=== PATIENT | female | born 1990 | race American Indian/Alaskan Native ===

== ENCOUNTER 2016-07-07 08:33 | Emergency (ER) | payer SELFPAY ==
[2016-07-07 08:51] VITALS: BP 113/79
[2016-07-07 10:16] LABS: Basophils % (Auto) 0.3 % (0.0-1.8); Eosinophils % (Auto) 0.4 % (0.0-4.3); Hemoglobin 13.8 gm/dl (10.1-14.3); Mean Corpuscular HGB Conc 35 % (30-34); Mean Corpuscular Hemoglobin 32 pg (28-32); Mean Corpuscular Volume 92 fl (79-97); Platelet Count 269 K/mm3 (140-440); Red Blood Count 4.37 M/mm3 (3.65-5.03); Red Cell Distribution Width 13.4 % (13.2-15.2); White Blood Count 9.5 K/mm3 (4.5-11.0)
[2016-07-07 10:36] LABS: Alanine Aminotransferase 8 units/L (7-56); Albumin 4.4 g/dL (3.9-5); Albumin/Globulin Ratio 1.2 %; Alkaline Phosphatase 72 units/L (35-129); Anion Gap 15 mmol/L; BUN/Creatinine Ratio 17.14; Bilirubin,Total 0.5 mg/dL (0.1-1.2); Blood Urea Nitrogen 12 mg/dL (7-17); Calcium 9.5 mg/dL (8.4-10.2); Carbon Dioxide 29 mmol/L (22-30); Chloride 98.4 mmol/L (98-107); Glucose 105 mg/dL (65-100); Lipase 26 units/L (13-60); Potassium 4.2 mmol/L (3.6-5.0); Sodium 138 mmol/L (137-145); Total Protein 8.2 g/dL (6.3-8.2)
[2016-07-07 11:34] LABS: Mucus,Urine 3+ /HPF
[2016-07-07 11:41] LABS: Bacteria,Urine 2+ /HPF (Negative); Bilirubin,Urine NEG (Negative); Blood,Urine SM (Negative); Ketones,Urine NEG (Negative); Leukocyte Esterase,Urine SM (Negative); Nitrite,Urine POS (Negative); Protein,Urine <15 mg/dL mg/dL (Negative)
--- NOTE | 2016-07-08 14:54 | ED Elopement Review ---
ED Pt Elopement review - Results review Lab results: Laboratory Tests 07/07/16 07/07/16 07/07/16 10:00 10:00 10:00 WBC 9.5 RBC 4.37 Hgb 13.8 Hct 40.0 MCV 92 MCH 32 MCHC 35 H RDW 13.4 Plt Count 269 Lymph % (Auto) 12.4 L [place] % (Auto) 5.7 Eos % (Auto) 0.4 Baso % (Auto) 0.3 Lymph # 1.2 [place] # 0.5 Eos # 0.0 Baso # 0.0 Seg Neutrophils % 81.2 H Seg Neutrophils # 7.7 Sodium 138 Potassium 4.2 Chloride 98.4 Carbon Dioxide 29 Anion Gap 15 BUN 12 Creatinine 0.7 Estimated GFR > 60 BUN/Creatinine Ratio 17.14 Glucose 105 H Calcium 9.5 Total Bilirubin 0.5 AST 18 ALT 8 Alkaline Phosphatase 72 Total Protein 8.2 Albumin 4.4 Albumin/Globulin Ratio 1.2 Lipase 26 HCG, Qual Negative Urine Color Urine Turbidity Urine pH Ur Specific [place] Urine Protein Urine Glucose (UA) Urine Ketones Urine Blood Urine Nitrite Ur Reducing Substances Urine Bilirubin Urine Ictotest Urine Urobilinogen Ur Leukocyte Esterase Urine WBC (Auto) Urine RBC (Auto) U Epithel Cells (Auto) Urine Bacteria (Auto) Urine Mucus 07/07/16 Unknown WBC RBC Hgb Hct MCV MCH MCHC RDW Plt Count Lymph % (Auto) [place] % (Auto) Eos % (Auto) Baso % (Auto) Lymph # [place] # Eos # Baso # Seg Neutrophils % Seg Neutrophils # Sodium Potassium Chloride Carbon Dioxide Anion Gap BUN Creatinine Estimated GFR BUN/Creatinine Ratio Glucose Calcium Total Bilirubin AST ALT Alkaline Phosphatase Total Protein Albumin Albumin/Globulin Ratio Lipase HCG, Qual Urine Color Yellow Urine Turbidity Slightly-cloudy Urine pH 5.0 Ur Specific [place] 1.027 Urine Protein <15 mg/dl Urine Glucose (UA) Neg Urine Ketones Neg Urine Blood Sm Urine Nitrite Pos Ur Reducing Substances Not Reportable Urine Bilirubin Neg Urine Ictotest Not Reportable Urine Urobilinogen 2.0 Ur Leukocyte Esterase Sm Urine WBC (Auto) 8.0 H Urine RBC (Auto) 5.0 U Epithel Cells (Auto) 12.0 Urine Bacteria (Auto) 2+ Urine Mucus 3+ - Call Back decision Pt Call Back Decision: No action required
== END 2016-07-07 21:32 | disposition left against medical advice (07) ==
LOC: ED 08:33
DX: R10.30 Lower abdominal pain, unspecified (principal); M25.512 Pain in left shoulder; Z53.21 Procedure and treatment not carried out due to patient leaving prior to being seen by health care provider
CPT/HCPCS: 36415; 80053; 81001; 83690; 84703; 85025

== ENCOUNTER 2017-12-10 09:08 | Inpatient (IN) | payer OTHER ==
[2017-12-10] MEDS ORDERED: BICITRA PO SCH (10:05)
[2017-12-10] MEDS ORDERED: REGLAN IV SCH (10:05)
[2017-12-10] MEDS ORDERED: PEPCID IV SCH (10:05)
[2017-12-10] MEDS ORDERED: DILAUDID IV PRN (10:06)
[2017-12-10] MEDS ORDERED: PHENERGAN PR PRN (10:06)
[2017-12-10] MEDS ORDERED: PHENERGAN PO PRN (10:06)
[2017-12-10] MEDS ORDERED: BENADRYL IV PRN ×2 (10:06→14:02)
[2017-12-10] MEDS ORDERED: ZOFRAN IV PRN (10:06)
[2017-12-10] MEDS ORDERED: NARCAN 0.4 MG/1 ML IV PRN ×3 (10:06→14:02)
--- NOTE | 2017-12-10 10:06 | Anesthesia Day of Surgery ---
Anesthesia Day of Surgery - Day of Surgery Patient Examined: Yes Patient H&P Reviewed: Yes Patient is NPO: Yes
--- NOTE | 2017-12-10 10:06 | Anesthesia Consultation ---
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
[2017-12-10] MEDS ORDERED: SODIUM CHLORIDE FLUSH SYRINGE 10 ML IV SCH (11:00)
[2017-12-10 11:01] LABS: Basophils % (Auto) 0.4 % (0.0-1.8); Eosinophils # (Auto) 0.1 K/mm3 (0.0-0.4); Hematocrit 34.7 % (30.3-42.9); Hemoglobin 11.5 gm/dl (10.1-14.3); Lymphocytes # (Auto) 1.9 K/mm3 (1.2-5.4); Lymphocytes % (Auto) 22.5 % (13.4-35.0); Mean Corpuscular HGB Conc 33 % (30-34); Mean Corpuscular Hemoglobin 28 pg (28-32); Mean Corpuscular Volume 84 fl (79-97); Monocytes # (Auto) 0.8 K/mm3 (0.0-0.8); Monocytes % (Auto) 9.9 % (0.0-7.3); Platelet Count 321 K/mm3 (140-440); Red Blood Count 4.15 M/mm3 (3.65-5.03); Red Cell Distribution Width 15.1 % (13.2-15.2)
--- NOTE | 2017-12-10 11:19 | History and Physical Report ---
History of Present Illness Date of examination: 12/10/17 Date of admission: 12/10/17 09:08 Chief complaint: Third repeat History of present illness: 27-year-old at 39+ weeks presents for 3rd repeat , she is a [facility] patient. course has been unremarkable except polyhydramnios Past History Past Medical History: no pertinent history Past Surgical History: section (# 2), other (oral history of spinal surgery) [employer]PA[employer]ER History: denies: chlamydia, gonorrhea, hepatitis B, hepatitis C, herpes, HIV , syphilis, trichomonas Social history: single, full code. denies: smoking, alcohol abuse, prescription drug abuse, IV drug use - Obstetrical History Expected Date of Delivery: 12/11/17 Actual Gestation: 39 Week(s) 6 Day(s) : 3 Para: 2 Medications and Allergies Allergies Allergy/AdvReac Type Severity Reaction Status Date / Time No Known Allergies Allergy Verified 12/10/17 10:04 Home Medications Medication Instructions Recorded Confirmed Last Taken Type Ibuprofen [Motrin 600 MG tab] 600 mg PO Q8H PRN #30 tablet 12/10/17 Unknown Rx Multivitamin with Iron 1 each PO DAILY #30 tablet 12/10/17 Unknown Rx [Multivitamins with Iron] oxyCODONE /ACETAMINOPHEN [Percocet 1 tab PO Q6HR PRN #30 tablet 12/10/17 Unknown Rx 5/325] Active Meds: Active Medications Citric Acid/Sodium Citrate (Bicitra) 30 ml PO ONCE ELMER Stop: 12/10/17 23:06 Diphenhydramine HCl (Benadryl) 12.5 mg IV Q2H PRN PRN Reason: Itching Famotidine (Pepcid) 20 mg IV ONCE ELMER Stop: 12/10/17 23:06 Hydromorphone HCl (Dilaudid) 0.5 mg IV Q5M PRN PRN Reason: Breakthrough Pain Stop: 12/11/17 06:05 Lactated Ringer's (Lactated Ringers) 1,000 mls @ 2,250 mls/hr IV PREOP ELMER Stop: 12/11/17 11:27 Oxytocin/Sodium Chloride (Pitocin/Ns 20 Unit/1000ml Drip) 20 units in 1,000 mls @ 0 mls/hr IV TITR ELMER Ketorolac Tromethamine (Toradol) 30 mg IV Q6H PRN PRN Reason: Pain, Moderate (4-6) Stop: 12/15/17 10:07 Metoclopramide HCl (Reglan) 10 mg IV ONCE ELMER Stop: 12/10/17 23:06 Naloxone HCl (Narcan 0.4 Mg/1 Ml) 0.2 mg IV Q2MIN PRN PRN Reason: Res Rate </= 8 or 02 SAT < 92% Ondansetron HCl (Zofran) 4 mg IV Q8H PRN PRN Reason: Nausea And Vomiting Promethazine HCl (Phenergan) 25 mg PO Q6H PRN PRN Reason: Nausea And Vomiting Promethazine HCl (Phenergan) 25 mg NH Q6H PRN PRN Reason: Nausea And Vomiting Sodium Chloride (Sodium Chloride Flush Syringe 10 Ml) 10 ml IV PRN ELMER Review of Systems Constitutional: no weight gain, no fever, no chills, no sweats, no lethargy, no chronic pain Cardiovascular: no chest pain, no orthopnea, no syncope, no lightheadedness, no shortness of breath, no dyspnea on exertion, no high blood pressure Respiratory: no cough, no cough with sputum, no shortness of breath, no dyspnea on exertion Gastrointestinal: no abdominal pain, no nausea, no vomiting, no heartburn, no indigestion Genitourinary: no vaginal bleeding, no vaginal discharge, no leakage of fluid - Vital Signs Vital signs: Vital Signs Pulse BP 129 H 102/61 12/10/17 09:53 12/10/17 09:53 Temp Pulse Resp BP Pulse Ox 109 H 113/68 97 12/10/17 11:15 12/10/17 11:15 12/10/17 09:55 - Physical Exam Cardiovascular: Regular rate, Normal S1, Normal S2 Lungs: Positive: Clear to auscultation, Normal air movement Abdomen: Positive: normal appearance, soft. Negative: distention, tenderness, guarding, rigidity Genitourinary (Female): Positive: normal external genitalia Uterus: Positive: enlarged (EFW ~ 3700). Negative: tender Extremities: Positive: normal Results Result Diagrams: 12/10/17 10:48 Abnormal lab results 12/10/17 Range/Units 10:48 [place] % (Auto) 9.9 H (0.0-7.3) % All other labs normal. Assessment and Plan A: 27-year-old at 39+6 wks presents for a third repeat -cat 1 tracing -Oral history of requiring general anesthesia due to spinal surgery P: -She has been consented -Proceed to the OR once available - Patient Problems (1) 39 weeks gestation of Current Visit: Yes Status: Acute (2) History of 2 sections Current Visit: Yes Status: Acute
[2017-12-10] MEDS: LACTATED RINGERS 1,000 ML IV SCH ×2 (11:24→11:54)
[2017-12-10] MEDS ORDERED: ANCEF/STERILE WATER 2 GM/20 ML 0 GM/0 ML SYRINGE IV ONE (11:28)
[2017-12-10] MEDS ORDERED: ANCEF/STERILE WATER 2 GM/20 ML 2 GM/20 ML SYRINGE IV NR (12:00)
[2017-12-10] MEDS ORDERED: DIPRIVAN 10 MG/ML IV ONE (12:53)
[2017-12-10] MEDS ORDERED: XYLOCAINE MPF 2% ONE (12:53)
[2017-12-10] MEDS ORDERED: ANCEF/STERILE WATER 2 GM/20 ML IV ONE (12:55)
[2017-12-10] MEDS ORDERED: QUELICIN ONE (12:56)
[2017-12-10] MEDS ORDERED: WATER FOR IRRIG STERILE IR ONE (13:03)
[2017-12-10] MEDS ORDERED: NACL 0.9% IR ONE (13:03)
[2017-12-10] MEDS: PITOCin/NS 20 UNIT/1000ML DRIP 20 UNITS/1,000 ML BAG IV SCH ×2 (13:13→14:26)
[2017-12-10] MEDS ORDERED: SUBLIMAZE ONE (13:17)
[2017-12-10] MEDS ORDERED: ZOFRAN ONE (13:18)
[2017-12-10] MEDS ORDERED: DILAUDID ONE (13:56)
[2017-12-10] MEDS ORDERED: LACTATED RINGERS 1,000 ML ONE (13:56)
--- NOTE | 2017-12-10 14:01 | Operative Report ---
Operative Report Operative Report: DATE: 12/10/2017 PREOPERATIVE DIAGNOSIS: 27-year-old at 39+6 weeks, 2 prior C-sections desires repeat, declined tubal ligation POSTOP DIAGNOSIS: As above NAME OF PROCEDURE: 3rd Repeat low transverse section Adhesiolysis SURGEON: ANTONIO FRANCIS MD REGISTRY NP: Korin ANESTHESIA: Gen. EBL: 500 mL PATHOLOGY SPECIMEN: None URINE OUTPUT: 400 mL BRIEF NOTE: Due to prior spinal surgery, anesthesia unable to obtain epidural or spinal. Surgery performed under general anesthesia FINDINGS:Very thin lower segment with noted, Female Infant in cepahlic presentation, time of was 13:11, weight 8 lbs. 3 oz. or 3701 grams, Apgars were 8 and 9, normal uterus tubes and ovaries bilaterally, dense adhesions DESCRIPTION OF PROCEDURE: She was taken to the operating room where she was prepped and draped in a sterile fashion, she was placed in the dorsal supine position. Pfannenstiel incision was performed through her prior incisional scar which was carried through to underlying rectus fascia which was scored in the midline. The fascial incision was extended laterally with use of Marinelli scissors, the anterior leaf was then grasped with Kochers forceps elevated dissected sharply and bluntly off the underlying rectus in a similar fashion inferior leaf was grasped elevated dissected sharply and bluntly off the underlying rectus. The rectus was in the midline, good visualization of bladder was noted. A bladder blade was placed in the patient's pelvic cavity ; very thin window noted and bladder flap could not be created. A hysterotomy incision was then performed in the lower segment with clear amniotic fluid noted , hysterotomy incision was extended laterally with the use of fingers manually. in was delivered in the usual manner; cord was clamped and cut was handed over to waiting nursery staff. The placenta was then delivered manually intact, the uterus was exteriorized cleared of all clots and debris. Hysterotomy incision was then closed in a running locked fashion with 0 Vicryl on a CTX; using the same suture was imbricate the initial layer. Interrupted [id number] stitches were used to obtain hemostasis. Uterus was then returned to the patient's pelvic cavity; peritoneal edges were grasped with hemostats and Iliana's elevated copious irrigation was used to clear the gutters of all clots and debris. Tercel hemostatic agent was then applied to the hysterotomy incision as a means to prevent future bleeding. The peritoneal layer was then closed in a running fashion with 3-0 Vicryl and the rectus was reapproximated with a single [id number] stitch. The fascia was closed in a running fashion with 0 Vicryl and tied in the opposite side. The subcutaneous layer was irrigated and then reapproximated with interrupted figure -of-eight stitches. The skin was closed in a subcuticular manner with 4-0 Vicryl. She tolerated the procedure well lap and instrument counts were correct 2 she did receive 2 g of Ancef prior to incision she is transferred to PACU in stable condition thank you.
[2017-12-10] MEDS ORDERED: LANSINOH TP PRN (14:02)
[2017-12-10] MEDS ORDERED: SENOKOT PO PRN (14:02)
[2017-12-10] MEDS ORDERED: MYLICON PO PRN (14:02)
[2017-12-10] MEDS ORDERED: TUCKS PAD TP PRN (14:02)
[2017-12-10] MEDS ORDERED: MILK OF MAGNESIA PO PRN (14:02)
[2017-12-10] MEDS ORDERED: ANUCORT-HC PR PRN (14:02)
[2017-12-10] MEDS: TORADOL IV PRN (14:23)
[2017-12-10] MEDS ORDERED: SODIUM CHLORIDE FLUSH SYRINGE 10 ML IV NR (15:00)
[2017-12-10] MEDS ORDERED: NACL 0.9% 1000 ML 1,000 ML IV SCH (15:00)
[2017-12-10] MEDS ORDERED: PITOCin/NS 20 UNIT/1000ML DRIP 20 UNITS/1,000 ML BAG IV SCH (15:00)
[2017-12-10] MEDS ORDERED: MORPHINE PCA 30MG/30ML IV SCH (15:00)
[2017-12-10] MEDS: D5LR 1,000 ML IV SCH (19:02)
[2017-12-10] MEDS: SENOKOT S PO SCH (22:41)
[2017-12-11] MEDS: D5LR 1,000 ML IV SCH (02:02)
[2017-12-11 03:00] LABS: Hematocrit 29.9 % (30.3-42.9); Hemoglobin 10.1 gm/dl (10.1-14.3)
[2017-12-11] MEDS: TORADOL IV PRN (05:30)
[2017-12-11] MEDS: MOTRIN PO PRN ×3 (09:25→21:26)
[2017-12-11] MEDS: PRENATAL VITAMIN PO SCH (09:27)
[2017-12-11] MEDS: SENOKOT S PO SCH ×2 (09:28→21:22)
[2017-12-11] MEDS: FEOSOL PO SCH (09:28)
--- NOTE | 2017-12-11 10:54 | Progress Note ---
Assessment and Plan A: /postop day 1 S/P repeat LTCS. Anemia. P: Encouraged ambulation. Advance diet as tolerated. Iron supplementation. Subjective - Subjective Date of service: 12/11/17 Principal diagnosis: /postop day 1 S/P repeat LTCS Interval history: day 1 S/P repeat LTCS. Doing well. Bottlefeeding. Patient reports small amount of lochia. Voiding without difficulty. Ambulating well. Tolerating a clear liquid diet without nausea or vomiting. + flatus. Patient denies headache, cough, shortness of breath, chest pain, abdominal pain , leg pain, heavy vaginal bleeding, or any other problems. Iron supplements have been ordered for anemia. Patient reports: appetite normal, voiding normally, pain well controlled, flatus , ambulating normally : doing well Objective - Vital Signs Latest vital signs: Vital Signs Temp Pulse Resp BP BP Pulse Ox 12/11/17 09:25 20 12/11/17 07:40 98.9 F 96 H 20 100/57 95 12/11/17 06:00 16 12/11/17 05:40 99.6 F 97 H 18 119/61 12/11/17 05:30 20 12/11/17 04:05 18 12/11/17 03:00 98.9 F 12/11/17 02:00 20 12/11/17 01:00 99.7 F H 101 H 18 111/71 12/11/17 00:05 18 12/10/17 22:00 18 12/10/17 21:36 97.7 F 20 112/64 12/10/17 21:30 97.7 F 96 H 20 112/62 12/10/17 20:00 20 12/10/17 18:40 20 12/10/17 15:35 98.5 F 88 20 141/98 12/10/17 15:10 89 22 136/93 95 12/10/17 15:05 69 22 125/85 12/10/17 15:03 97.8 F 18 12/10/17 15:00 92 H 10 L 136/90 12/10/17 14:55 95 H 11 L 132/91 95 12/10/17 14:50 75 13 127/86 95 12/10/17 14:45 90 14 142/73 95 12/10/17 14:40 83 10 L 131/88 95 12/10/17 14:35 87 14 136/91 96 12/10/17 14:30 80 13 128/88 96 12/10/17 14:25 95 H 15 140/86 95 12/10/17 14:20 92 H 14 142/91 96 12/10/17 14:15 100 H 16 136/85 96 12/10/17 14:10 11 L 12/10/17 14:07 97.6 F 18 12/10/17 11:15 109 H 113/68 Intake and Output 12/10/17 12/11/17 12/11/17 23:59 07:59 15:59 Intake Total 240 1115 Output Total 600 1000 Balance -360 115 Intake: IV 875 D5lr 1,000 ml @ 125 mls/ 875 hr IV DIRECT ELMER Rx#: [id number] Intake, Free Water 240 240 Output: Urine 600 1000 Indwelling Catheter 600 1000 Other: Total, Output Amount 600 1000 - Exam Breasts: Present: deferred Cardiovascular: Present: Regular rate, Normal S1, Normal S2 Lungs: Present: Clear to auscultation Abdomen: Present: normal appearance, soft, normal bowel sounds. Absent: distention, tenderness, guarding, rigidity Uterus: Present: normal, firm, fundal height below umbilicus. Absent: bogginess , tenderness Extremities: Present: normal. Absent: tenderness, edema Incision: Present: normal, dry, intact, dressed - Labs Labs: Abnormal lab results 12/10/17 12/11/17 Range/Units 10:48 02:21 Hct 29.9 L (30.3-42.9) % [place] % (Auto) 9.9 H (0.0-7.3) %
[2017-12-11] MEDS ORDERED: BOOSTRIX IM ONE (14:03)
[2017-12-11] MEDS ORDERED: M-M-R II VACCINE SUB-Q ONE (14:03)
[2017-12-11] MEDS: PERCOCET 5/325 PO PRN (14:24)
[2017-12-12] MEDS: MOTRIN PO PRN (06:56)
[2017-12-12] MEDS: PERCOCET 5/325 PO PRN ×3 (06:57→20:01)
[2017-12-12] MEDS: FEOSOL PO SCH (11:27)
[2017-12-12] MEDS: SENOKOT S PO SCH (11:28)
[2017-12-12] MEDS: PRENATAL VITAMIN PO SCH (11:28)
--- NOTE | 2017-12-12 18:56 | Progress Note ---
Assessment and Plan A: /postop day 2. P: Anticipate discharge tomorrow. Subjective - Subjective Date of service: 12/05/17 Principal diagnosis: /postop day 2 S/P repeat LTCS Interval history: day 2 S/P repeat LTCS. Doing well. Bottlefeeding. Patient reports small amount of lochia. Voiding without difficulty. Ambulating well. Tolerating a regular diet without nausea or vomiting. + flatus. Patient denies headache, cough, shortness of breath, chest pain, abdominal pain , leg pain, heavy vaginal bleeding, or any other problems. Iron supplements have been ordered for anemia. Patient reports: appetite normal, voiding normally, pain well controlled, flatus , ambulating normally [place]: doing well Objective - Vital Signs Latest vital signs: Vital Signs Temp Pulse Resp BP Pulse Ox 12/12/17 11:30 20 12/12/17 08:09 98.2 F 102 H 18 103/65 98 12/12/17 04:54 99.4 F 94 H 18 117/82 100 12/12/17 00:30 98.6 F 99 H 18 106/63 Intake and Output 12/12/17 12/12/17 12/12/17 07:59 15:59 23:59 Intake Total 480 840 Output Total 1 Balance 479 840 Intake: Oral 480 Intake, Free Water 480 360 Output: Urine 1 Indwelling Catheter 1 Other: Total, Intake Amount 240 Total, Output Amount 1 # Voids Void 1 1 - Exam Cardiovascular: Present: Regular rate, Normal S1, Normal S2 Lungs: Present: Clear to auscultation Abdomen: Present: normal appearance, soft, normal bowel sounds. Absent: distention, tenderness, guarding, rigidity Uterus: Present: normal, firm, fundal height below umbilicus. Absent: bogginess , tenderness Extremities: Present: normal. Absent: tenderness, edema Incision: Present: normal, dry, intact
[2017-12-13] MEDS: PERCOCET 5/325 PO PRN (05:12)
[2017-12-13] MEDS: PRENATAL VITAMIN PO SCH (09:48)
[2017-12-13] MEDS: SENOKOT S PO SCH (09:48)
[2017-12-13] MEDS: FEOSOL PO SCH (09:48)
[2017-12-13] MEDS: MOTRIN PO PRN (09:52)
--- NOTE | 2017-12-13 13:27 | Progress Note ---
Assessment and Plan - Patient Problems (1) Status post repeat low transverse section Current Visit: Yes Status: Acute Plan to address problem: POD 3 - stable Discharge to home today Follow up at [facility] [employer] in 2 weeks for incision check (2) Anemia in puerperium, baby delivered during current episode of care Current Visit: Yes Status: Acute Plan to address problem: Asymptomatic Continue iron therapy Subjective - Subjective Date of service: 12/13/17 Principal diagnosis: S/P repeat LTCS; POD 3 Patient reports: appetite normal, voiding normally, pain well controlled, flatus , ambulating normally : doing well, bottle feeding Objective - Vital Signs Latest vital signs: Vital Signs Temp Pulse Resp BP BP Pulse Ox 12/13/17 08:17 98.4 F 88 20 125/81 95 12/13/17 00:00 98.4 F 74 16 115/76 12/12/17 16:44 98.2 F 91 H 20 117/82 97 Intake and Output 12/12/17 12/13/17 12/13/17 23:59 07:59 15:59 Intake Total 120 240 Balance 120 240 Intake: Oral 120 Intake, Free Water 240 Other: Total, Intake Amount 120 - Exam Cardiovascular: Present: Regular rate, Normal S1, Normal S2, No murmurs Lungs: Present: Clear to auscultation, Normal air movement Abdomen: Present: normal appearance, soft Vulva: both: normal Uterus: Present: normal, firm, fundal height below umbilicus Extremities: Present: edema (1+) Deep Tendon Reflex Grade: Normal +2 Incision: Present: normal, dry, intact
--- NOTE | 2017-12-13 13:30 | Discharge Summary ---
Providers - Providers Date of Admission: 12/10/17 09:08 Date of discharge: 12/13/17 Attending physician: ANTONIO FRANCIS Primary care physician: ANTONIO FRANCIS Hospitalization Reason for admission: section, IUP at term Delivery: Procedure: repeat low transverse Episiotomy: none Laceration: none Incision: normal, dry, skin Other procedures: none complications: none Discharge diagnosis: IUP at term delivered [place] baby: female Hospital course: Uncomplicated Condition at discharge: Stable Disposition: [place]-01 TO HOME OR SELFCARE - Discharge Diagnoses (1) Status post repeat low transverse section Status: Acute (2) Anemia in puerperium, baby delivered during current episode of care Status: Acute Comment: Asymptomatic Continue iron therapy Plan - Discharge Medications Prescriptions: Ferrous Sulfate [Feosol 325 MG tab] 325 mg PO QDAY #30 tablet Ibuprofen [Motrin 600 MG tab] 600 mg PO Q8H PRN #30 tablet PRN Reason: Pain Multivitamin with Iron [Multivitamins with Iron] 1 each PO DAILY #30 tablet oxyCODONE /ACETAMINOPHEN [Percocet 5/325] 1 tab PO Q6HR PRN #30 tablet PRN Reason: Pain - Provider Discharge Summary Activity: routine, no sex for 6 weeks, no heavy lifting 4 weeks, no strenuous exercise Diet: routine Instructions: routine Additional instructions: [] Smoking cessation referral if applicable(refer to patient education folder for contact #) [] Refer to [facility]'s [facility] Booklet Call your doctor immediately for: * Fever > 100.5 * Heavy vaginal bleeding ( >1 pad per hour) * Severe persistent headache * Shortness of breath * Reddened, hot, painful area to leg or breast * Drainage or odor from incision. * Keep incision clean and dry at all times and follow doctor's instructions regarding bathing/showering - Follow up plan Follow up: ANTONIO FRANCIS MD [Primary Care Provider] - 14 Days (Follow up at [facility] in 2 weeks for incision check)
[2017-12-13 15:31] VITALS: BP 122/86
== END 2017-12-13 15:50 | disposition home or self-care (01) | DRG 766 ==
LOC: APU 09:08 → OB 15:57
PROVIDERS: ADMIT Obstetrics & Gynecology Gynecology; ATTEND Obstetrics & Gynecology Gynecology
PROC: 10D00Z1 Extraction of Products of Conception, Low, Open Approach (ICD-10-PCS; principal; 2017-12-10)
PROC: 3E0234Z Introduction of Serum, Toxoid and Vaccine into Muscle, Percutaneous Approach (ICD-10-PCS; 2017-12-11)
DX: O34.219 Maternal care for unspecified type scar from previous cesarean delivery (principal); Z3A.39 39 weeks gestation of pregnancy; Z37.0 Single live birth; Z23 Encounter for immunization; O90.81 Anemia of the puerperium; D64.9 Anemia, unspecified; Z86.73 Personal history of transient ischemic attack (TIA), and cerebral infarction without residual deficits
CPT/HCPCS: 36415; 85014; 85018; 85025; 86850; 86900; 86901; 96360; 96374; C9250; J0330; J0690; J1170; J1885; J2270; J2405; J2590; J2704; J2765; J3010; J7120; J7121

== ENCOUNTER 2019-03-05 22:37 | Emergency (ER) | payer BC, OTHER ==
[2019-03-05 23:03] VITALS: BP 119/82
[2019-03-06] LABS: Bacteria,Urine 1+ /HPF (Negative); Bilirubin,Urine NEG (Negative); Blood,Urine SM (Negative); Color,Urine Yellow (Yellow); HCG Qualitative,Urine Negative (Negative); Mucus,Urine FEW /HPF; Protein,Urine <15 mg/dL mg/dL (Negative)
[2019-03-06] MEDS ORDERED: KETOROLAC 30 MG/1 ML INJ IM ONE (01:00)
--- NOTE | 2019-03-06 01:05 | Emergency Department Report ---
ED Back Pain/Injury HPI - General Chief Complaint: Back Pain/Injury Stated Complaint: BACK PAIN Time Seen by Provider: 03/06/19 00:53 Source: family Limitations: No Limitations - History of Present Illness Initial Comments: Patient is a 28-year-old female who presents the emergency room with complaints of lower back pain that began 2 weeks ago. She denies any fall or injury. States that she frequently bends over and picks up her children. She denies any numbness, weakness, bowel or bladder incontinence, urinary symptoms, nausea, vomiting, fever. Patient states that she had surgery on her spine for scoliosis when she was 14 years old. She denies any allergies to medications. Patient states that she has an IUD as control. - Related Data Previous Rx's Medication Instructions Recorded Last Taken Type Ibuprofen [Motrin 600 MG tab] 600 mg PO Q8H PRN #30 tablet 12/10/17 Unknown Rx Multivitamin with Iron 1 each PO DAILY #30 tablet 12/10/17 Unknown Rx [Multivitamins with Iron] oxyCODONE /ACETAMINOPHEN [Percocet 1 tab PO Q6HR PRN #30 tablet 12/10/17 Unknown Rx 5/325] Ferrous Sulfate [Feosol 325 MG tab] 325 mg PO QDAY #30 tablet 12/13/17 Unknown Rx Cyclobenzaprine [Flexeril] 10 mg PO QHS PRN #10 tablet 03/06/19 Unknown Rx Ibuprofen [Motrin 800 MG tab] 800 mg PO Q8HR PRN #14 tablet 03/06/19 Unknown Rx Allergies Allergy/AdvReac Type Severity Reaction Status Date / Time No Known Allergies Allergy Verified 12/10/17 10:04 ED Review of Systems ROS: Stated complaint: BACK PAIN Other details as noted in HPI Comment: All other systems reviewed and negative ED Past Medical Hx - Past Medical History Previous Medical History?: No Hx Hypertension: No Hx Congestive Heart Failure: No Hx Diabetes: No Hx Deep Vein Thrombosis: No Hx Renal Disease: No Hx Sickle Cell Disease: No Hx Seizures: No Hx Asthma: No Hx COPD: No Hx HIV: No - Surgical History Past Surgical History?: Yes Additional Surgical History: Rods in back for Scoliosis - Social History Smoking Status: Never Smoker Substance Use Type: None - Medications Home Medications: Home Medications Medication Instructions Recorded Confirmed Last Taken Type Ibuprofen [Motrin 600 MG tab] 600 mg PO Q8H PRN #30 tablet 12/10/17 Unknown Rx Multivitamin with Iron 1 each PO DAILY #30 tablet 12/10/17 Unknown Rx [Multivitamins with Iron] oxyCODONE /ACETAMINOPHEN [Percocet 1 tab PO Q6HR PRN #30 tablet 12/10/17 Unknown Rx 5/325] Ferrous Sulfate [Feosol 325 MG tab] 325 mg PO QDAY #30 tablet 12/13/17 Unknown Rx Cyclobenzaprine [Flexeril] 10 mg PO QHS PRN #10 tablet 03/06/19 Unknown Rx Ibuprofen [Motrin 800 MG tab] 800 mg PO Q8HR PRN #14 tablet 03/06/19 Unknown Rx ED Physical Exam - General Limitations: No Limitations General appearance: alert, in no apparent distress - Head Head exam: Present: atraumatic, normocephalic - Eye Eye exam: Present: normal appearance - ENT ENT exam: Present: mucous membranes moist - Neck Neck exam: Present: normal inspection, full ROM. Absent: tenderness - Respiratory Respiratory exam: Present: normal lung sounds bilaterally. Absent: respiratory distress, wheezes, rales, rhonchi, stridor, chest wall tenderness, accessory muscle use, decreased breath sounds, prolonged expiratory - Cardiovascular Cardiovascular Exam: Present: regular rate, normal rhythm, normal heart sounds. Absent: systolic murmur, diastolic murmur, rubs, gallop - Back Exam Back exam: Present: normal inspection, full ROM, paraspinal tenderness (left L- spine paraspinal muscular TTP, no midline C-spine, T-spine or L-spine tenderness, no step offs, no deformities), other (well healed surgical incision to the T-spine region). Absent: vertebral tenderness - Neurological Exam Neurological exam: Present: alert, oriented X3, CN II-XII intact, normal gait. Absent: motor sensory deficit - Psychiatric Psychiatric exam: Present: normal affect, normal mood - Skin Skin exam: Present: warm, dry, intact ED Course Vital Signs 03/05/19 22:43 Temperature 98.0 F Pulse Rate 77 Respiratory 18 Rate Blood Pressure 119/82 O2 Sat by Pulse 99 Oximetry ED Medical Decision Making - Medical Decision Making Patient is a 28-year-old female who presents the emergency room with complaints of lower back pain that began 2 weeks ago. She denies any fall or injury. States that she frequently bends over and picks up her children. She denies any numbness, weakness, bowel or bladder incontinence, urinary symptoms, nausea, vomiting, fever. Patient states that she had surgery on her spine for scoliosis when she was 14 years old. She denies any allergies to medications. Patient states that she has an IUD as control. vitals are normal. UA is normal. urine preg is negative. on exam: left L-spine paraspinal muscular TTP, no midline C-spine, T-spine or L-spine tenderness, no step offs, no deformities, well healed surgical incision to the T-spine region, no focal neuro deficits. pt does not meet any of the warning signs requiring emergent imaging, no trauma, no unexplained weight loss, no neuro sx, not over 50, no fever, no IVDU, no steroids, no hx of cancer. pt given prescription for ibuprofen and flexeril. advised pt to please take medication as prescribed. Do not drive or operate machinery while taking muscle relaxer. follow up with a orthopedic doctor in the next 2-3 days. Return to the emergency room for any new or worsening symptoms. - Differential Diagnosis muscle strain, DDD, arthritis, spondylosis, spondylolisthesis Critical care attestation.: If time is entered above; I have spent that time in minutes in the direct care of this critically ill patient, excluding procedure time. ED Disposition Clinical Impression: Low back pain Qualifiers: Chronicity: acute Back pain laterality: left Sciatica presence: without sciatica Qualified Code(s): M54.5 - Low back pain Disposition: - TO HOME OR SELFCARE Is pt being admited?: No Does the pt Need Aspirin: No Condition: Stable Instructions: Acute Low Back Pain (ED) Additional Instructions: Please take medication as prescribed. Do not drive or operate machinery while taking muscle relaxer. follow up with a orthopedic doctor in the next 2-3 days. Return to the emergency room for any new or worsening symptoms. Prescriptions: Cyclobenzaprine [Flexeril] 10 mg PO QHS PRN #10 tablet PRN Reason: Muscle Spasm Ibuprofen [Motrin 800 MG tab] 800 mg PO Q8HR PRN #14 tablet PRN Reason: pain Referrals: [facility] [Provider Group] - 2-3 Days Time of Disposition: 01:04 Print Language: NEPALI
== END 2019-03-06 01:28 | disposition home or self-care (01) ==
LOC: ED 22:37
DX: M54.5 Low back pain (principal); Z79.899 Other long term (current) drug therapy
CPT/HCPCS: 81001; 81025; 99283; J1885

== ENCOUNTER 2019-04-01 23:28 | Emergency (ER) | payer BC, OTHER ==
[2019-04-01 23:35] VITALS: BP 123/84
--- NOTE | 2019-04-02 00:55 | Emergency Department Report ---
- General Chief Complaint: Upper Respiratory Infection Stated Complaint: COUGH Time Seen by Provider: 04/02/19 00:52 Source: patient Mode of arrival: Ambulatory Limitations: No Limitations - History of Present Illness Initial Comments: 28-year-old female presents to ED with URI symptoms 5 days. Patient reports dry cough, sore throat, nasal congestion. Patient states no relief with OTC meds. Denies fever. MD Complaint: fever, cough, sore throat, nasal congestion -: days(s) (5) Severity: mild Consistency: constant Improves With: nothing Worsens With: nothing Associated Symptoms: nasal congestion, sore throat, cough. denies: fever, chills, headache, shortness of breath, nausea, vomiting Treatments Prior to Arrival: "cold medicine" - Related Data Previous Rx's Medication Instructions Recorded Last Taken Type Ibuprofen [Motrin 600 MG tab] 600 mg PO Q8H PRN #30 tablet 12/10/17 Unknown Rx Multivitamin with Iron 1 each PO DAILY #30 tablet 12/10/17 Unknown Rx [Multivitamins with Iron] oxyCODONE /ACETAMINOPHEN [Percocet 1 tab PO Q6HR PRN #30 tablet 12/10/17 Unknown Rx 5/325] Ferrous Sulfate [Feosol 325 MG tab] 325 mg PO QDAY #30 tablet 12/13/17 Unknown Rx Cyclobenzaprine [Flexeril] 10 mg PO QHS PRN #10 tablet 03/06/19 Unknown Rx Ibuprofen [Motrin 800 MG tab] 800 mg PO Q8HR PRN #14 tablet 03/06/19 Unknown Rx Benzonatate [Tessalon Perles] 100 mg PO Q8HR PRN #20 capsule 04/02/19 Unknown Rx Fluticasone [Flonase] 1 spray NS QDAY #1 bottle 04/02/19 Unknown Rx Naproxen [Naprosyn] 500 mg PO BID #20 tablet 04/02/19 Unknown Rx Allergies Allergy/AdvReac Type Severity Reaction Status Date / Time No Known Allergies Allergy Verified 12/10/17 10:04 ED Review of Systems ROS: Stated complaint: COUGH Other details as noted in HPI Comment: All other systems reviewed and negative Constitutional: denies: chills, fever ENT: throat pain, congestion Respiratory: cough. denies: shortness of breath Cardiovascular: denies: chest pain Gastrointestinal: denies: nausea, vomiting ED Past Medical Hx - Past Medical History Previous Medical History?: No Hx Hypertension: No Hx Congestive Heart Failure: No Hx Diabetes: No Hx Deep Vein Thrombosis: No Hx Renal Disease: No Hx Sickle Cell Disease: No Hx Seizures: No Hx Asthma: No Hx COPD: No Hx HIV: No - Surgical History Additional Surgical History: Rods in back for Scoliosis, C-Sec - Social History Smoking Status: Never Smoker Substance Use Type: Alcohol - Medications Home Medications: Home Medications Medication Instructions Recorded Confirmed Last Taken Type Ibuprofen [Motrin 600 MG tab] 600 mg PO Q8H PRN #30 tablet 12/10/17 Unknown Rx Multivitamin with Iron 1 each PO DAILY #30 tablet 12/10/17 Unknown Rx [Multivitamins with Iron] oxyCODONE /ACETAMINOPHEN [Percocet 1 tab PO Q6HR PRN #30 tablet 12/10/17 Unknown Rx 5/325] Ferrous Sulfate [Feosol 325 MG tab] 325 mg PO QDAY #30 tablet 12/13/17 Unknown Rx Cyclobenzaprine [Flexeril] 10 mg PO QHS PRN #10 tablet 03/06/19 Unknown Rx Ibuprofen [Motrin 800 MG tab] 800 mg PO Q8HR PRN #14 tablet 03/06/19 Unknown Rx Benzonatate [Tessalon Perles] 100 mg PO Q8HR PRN #20 capsule 04/02/19 Unknown Rx Fluticasone [Flonase] 1 spray NS QDAY #1 bottle 04/02/19 Unknown Rx Naproxen [Naprosyn] 500 mg PO BID #20 tablet 04/02/19 Unknown Rx ED Physical Exam - General Limitations: No Limitations General appearance: alert, in no apparent distress - Head Head exam: Present: atraumatic, normocephalic - Eye Eye exam: Present: normal appearance, PERRL, EOMI - ENT ENT exam: Present: normal orophraynx, mucous membranes moist - Neck Neck exam: Present: normal inspection. Absent: lymphadenopathy - Respiratory Respiratory exam: Present: normal lung sounds bilaterally. Absent: respiratory distress, wheezes, rales, rhonchi, stridor - Cardiovascular Cardiovascular Exam: Present: regular rate, normal rhythm - GI/Abdominal GI/Abdominal exam: Absent: distended - Extremities Exam Extremities exam: Present: normal inspection - Neurological Exam Neurological exam: Present: alert, oriented X3 - Psychiatric Psychiatric exam: Present: normal affect, normal mood - Skin Skin exam: Present: warm, dry, intact, normal color ED Course Vital Signs 04/01/19 23:34 Temperature 98.4 F Pulse Rate 98 H Respiratory 18 Rate Blood Pressure 123/84 O2 Sat by Pulse 98 Oximetry Critical care attestation.: If time is entered above; I have spent that time in minutes in the direct care of this critically ill patient, excluding procedure time. ED Disposition Clinical Impression: URI (upper respiratory infection) Disposition: - TO HOME OR SELFCARE Is pt being admited?: No Condition: Stable Instructions: Upper Respiratory Infection (ED) Referrals: [facility] [Provider Group] - 3-5 Days Time of Disposition: 00:54
== END 2019-04-02 01:00 | disposition home or self-care (01) ==
LOC: ED 23:28
DX: J06.9 Acute upper respiratory infection, unspecified (principal); Z79.899 Other long term (current) drug therapy